=== PATIENT | female | born 1960 | race Caucasian/White ===

== ENCOUNTER 2020-09-16 15:28 | Inpatient (IN) | payer OTHER ==
[~2020-09-16] VITALS: Ht 162.6 cm; Wt 55.5 kg
[~2020-09-16 15:28] MED LIST: ASPIR 8181 MG PO; ASPIRIN EC81 MG PO; ATORVASTATIN CA20 MG PO; BACTRIM DS TAB1 EACH PO; CLOPIDOGREL75 MG PO; CYCLOBENZAPRINE10 MG PO; HUMALOG100 UNIT/3 SC; LEVEMIR FL100 UNIT/1 SQ; LEVEMIR100 UNIT/1 SQ; LORTAB 7.5-3251 EACH PO; NOVOLOG FL100 UNIT/1 SQ; ZOFRAN ODT4 MG PO; ZYVOX600 MG PO; [UNRECOGNIZED DRUG - REMARK]
[2020-09-16 17:09] LABS: RED BLOOD COUNT 4.14 M/UL (4.00-5.10); WHITE BLOOD COUNT 5.9 K/UL (4.5-11.0)
[2020-09-16 17:34] LABS: BUN/CREATININE RATIO 24 (0-10)
[2020-09-17] MEDS ORDERED: WELLBUTRIN SR150 MG PO (08:01)
[2020-09-17] MEDS ORDERED: MECLIZINE HCL25 MG PO (08:02)
[2020-09-17] MEDS ORDERED: TRAZODONE HCL150 MG PO (08:02)
[2020-09-17] MEDS ORDERED: MEGACE 400400 MG/10 PO (08:03)
[2020-09-17] MEDS ORDERED: REGLAN5 MG PO (08:03)
[2020-09-17] MEDS ORDERED: NEURONTIN800 MG PO (08:03)
[2020-09-17] MEDS ORDERED: NOVOLOG FL100 UNIT/1 SC (08:18)
[2020-09-17] MEDS ORDERED: TRESIBA FL100 UNIT/1 SC (08:19)
[2020-09-17 08:21] LABS: HEMOGLOBIN 9.3 gm/dl (12.3-15.3); RED BLOOD COUNT 4.24 M/UL (4.00-5.10); WHITE BLOOD COUNT 6.6 K/UL (4.5-11.0)
[2020-09-17 08:53] LABS: BUN/CREATININE RATIO 20 (0-10)
[2020-09-17] MEDS ORDERED: CRESTOR10 MG PO (19:08)
[2020-09-18 04:54] LABS: HEMOGLOBIN 8.5 gm/dl (12.3-15.3); WHITE BLOOD COUNT 6.1 K/UL (4.5-11.0)
[2020-09-18 04:58] LABS: RED BLOOD COUNT 3.75 M/UL (4.00-5.10)
[2020-09-18 05:14] LABS: BUN/CREATININE RATIO 18 (0-10)
[2020-09-19 05:33] LABS: HEMOGLOBIN 8.4 gm/dl (12.3-15.3); RED BLOOD COUNT 3.72 M/UL (4.00-5.10); WHITE BLOOD COUNT 5.7 K/UL (4.5-11.0)
[2020-09-19 05:54] LABS: BUN/CREATININE RATIO 22 (0-10)
[2020-09-20 05:55] LABS: HEMOGLOBIN 8.4 gm/dl (12.3-15.3); RED BLOOD COUNT 3.82 M/UL (4.00-5.10); WHITE BLOOD COUNT 6.9 K/UL (4.5-11.0)
[2020-09-20 06:13] LABS: BUN/CREATININE RATIO 18 (0-10)
[2020-09-21 03:46] LABS: HEMOGLOBIN 8.7 gm/dl (12.3-15.3); RED BLOOD COUNT 3.86 M/UL (4.00-5.10); WHITE BLOOD COUNT 6.1 K/UL (4.5-11.0)
[2020-09-21 04:16] LABS: BUN/CREATININE RATIO 17 (0-10)
[2020-09-22 08:19] LABS: HEMOGLOBIN 8.9 gm/dl (12.3-15.3); RED BLOOD COUNT 3.92 M/UL (4.00-5.10); WHITE BLOOD COUNT 6.6 K/UL (4.5-11.0)
[2020-09-22 08:41] LABS: BUN/CREATININE RATIO 21 (0-10)
[2020-09-23 04:35] LABS: HEMOGLOBIN 8.8 gm/dl (12.3-15.3); RED BLOOD COUNT 3.88 M/UL (4.00-5.10)
[2020-09-23 05:39] LABS: BUN/CREATININE RATIO 23 (0-10)
--- NOTE | 2020-09-23 18:05 | NUR ---
NOTIFIED DR FELIX OF PT FALLING OUT OF BED. PT COMPLAINING OF PAIN IN HER TAILBONE. DR FELIX ORDERED XRAYS OF SACRUM/COCCYX.
[2020-09-24 04:23] LABS: HEMOGLOBIN 9.2 gm/dl (12.3-15.3); RED BLOOD COUNT 4.08 M/UL (4.00-5.10); WHITE BLOOD COUNT 7.1 K/UL (4.5-11.0)
[2020-09-24 05:15] LABS: BUN/CREATININE RATIO 27 (0-10)
[2020-09-25 05:59] LABS: BUN/CREATININE RATIO 31 (0-10)
[2020-09-26 06:02] LABS: BUN/CREATININE RATIO 30 (0-10)
[2020-09-26] MEDS ORDERED: NOVOLOG FL100 UNIT/1 SC (18:24)
[2020-09-26] MEDS ORDERED: ATORVASTATIN CA20 MG PO (18:24)
[2020-09-26] MEDS ORDERED: TRESIBA FL100 UNIT/1 SC (18:24)
[2020-09-26] MEDS ORDERED: FERROUS SULFAT325 M2 PO (18:24)
[2020-09-26] MEDS ORDERED: ACETAZOLAMIDE250 MG PO (18:42)
[2020-09-26] MEDS ORDERED: HYDROCODON-ACE1 EAC2 PO (18:42)
[2020-09-27 04:52] LABS: BUN/CREATININE RATIO 32 (0-10)
--- NOTE | 2020-09-27 10:14 | NUR ---
SPOKE WITH [facility] AURICULAR THERAPIST TO HELP ASSIST WITH TRANSPORTATION HOME FOR DISCHARGE
== END 2020-09-27 13:57 | disposition home or self-care (01) | DRG 564 ==
LOC: ER1 15:28 → CDU 19:38 → MED SURG 4 19:38
PROVIDERS: Emergency Medicine; Internal Medicine; Internal Medicine Infectious Disease; ADMIT Internal Medicine
PROC: B24BZZZ Ultrasonography of Heart with Aorta (ICD-10-PCS; principal; 2020-09-17)
DX: T87.44 Infection of amputation stump, left lower extremity (principal); I50.23 Acute on chronic systolic (congestive) heart failure; I21.A1 Myocardial infarction type 2; E87.3 Alkalosis; J96.11 Chronic respiratory failure with hypoxia; J90 Pleural effusion, not elsewhere classified; L03.116 Cellulitis of left lower limb; I11.0 Hypertensive heart disease with heart failure; I25.10 Atherosclerotic heart disease of native coronary artery without angina pectoris; D64.9 Anemia, unspecified; G40.909 Epilepsy, unspecified, not intractable, without status epilepticus; M54.5 Low back pain; B19.20 Unspecified viral hepatitis C without hepatic coma; K74.60 Unspecified cirrhosis of liver; Z20.822 Contact with and (suspected) exposure to COVID-19; I08.1 Rheumatic disorders of both mitral and tricuspid valves; G89.29 Other chronic pain; I95.2 Hypotension due to drugs; T48.3X5A Adverse effect of antitussives, initial encounter; D50.9 Iron deficiency anemia, unspecified; E11.65 Type 2 diabetes mellitus with hyperglycemia; Z98.51 Tubal ligation status; Z90.49 Acquired absence of other specified parts of digestive tract; Z88.8 Allergy status to other drugs, medicaments and biological substances; Z79.4 Long term (current) use of insulin; Z88.5 Allergy status to narcotic agent; Z82.49 Family history of ischemic heart disease and other diseases of the circulatory system; Z89.612 Acquired absence of left leg above knee; Z91.14 Patient's other noncompliance with medication regimen; Z79.82 Long term (current) use of aspirin
CPT/HCPCS: ECHO; 36415; 71045; 72220; 76705; 80048; 80053; 80202; 81001; 82550; 82553; 82962; 83036; 83540; 83550; 83690; 83735; 83880; 84484; 85025; 85027; 86140; 87040; 87086; 93005; 93306; 96374; 96375; 97110; 97116; 97116-GP-CQ; 97161; 97166; 97530-GP-CQ; 99285; J1120; J1335; J1650; J1756; J1940; J2270; J2405; J3370; J7030; J7070; U0002

== ENCOUNTER 2020-12-26 20:02 | Emergency (ER) | payer OTHER ==
[~2020-12-26 20:02] MED LIST changes: +ACETAZOLAMIDE250 MG PO; +CRESTOR10 MG PO; +FERROUS SULFAT325 M2 PO; +HYDROCODON-ACE1 EAC2 PO; +MECLIZINE HCL25 MG PO; +MEGACE 400400 MG/10 PO; +NEURONTIN800 MG PO; +NOVOLOG FL100 UNIT/1 SC; +REGLAN5 MG PO; +TRAZODONE HCL150 MG PO; +TRESIBA FL100 UNIT/1 SC; +WELLBUTRIN SR150 MG PO
[2020-12-26 20:38] LABS: HEMOGLOBIN 13.3 gm/dl (12.3-15.3); RED BLOOD COUNT 4.83 M/UL (4.00-5.10); WHITE BLOOD COUNT 7.4 K/UL (4.5-11.0)
[2020-12-26 21:01] LABS: BUN/CREATININE RATIO 36 (0-10)
[2020-12-27] MEDS ORDERED: NOVOLOG 10100 UNITS/ INJ (00:56)
[2020-12-27] MEDS ORDERED: LEVEMIR 10100 UNITS/ SQ (00:56)
[2020-12-27] MEDS ORDERED: OMNICEF 300 MG300 MG PO (01:04)
== END 2020-12-27 01:45 | disposition home or self-care (01) ==
LOC: ER1 20:02
PROVIDERS: Family Medicine
DX: R07.81 Pleurodynia (principal); G89.29 Other chronic pain; E11.40 Type 2 diabetes mellitus with diabetic neuropathy, unspecified; N39.0 Urinary tract infection, site not specified; I25.10 Atherosclerotic heart disease of native coronary artery without angina pectoris; F17.200 Nicotine dependence, unspecified, uncomplicated; Z91.14 Patient's other noncompliance with medication regimen; Z90.49 Acquired absence of other specified parts of digestive tract; Z95.1 Presence of aortocoronary bypass graft; Z88.8 Allergy status to other drugs, medicaments and biological substances; Z88.5 Allergy status to narcotic agent
CPT/HCPCS: 71045; 80053; 81001; 82009; 82550; 82553; 82803; 82962; 83605; 83690; 83735; 83874; 83880; 84484; 85025; 85610; 96374; 96375; 99284; J0696; J7030